=== PATIENT | female | born 1980 | race Caucasian/White ===

== ENCOUNTER → 2016-11-13 | Outpatient (CLI) | payer BC ==
[~2016-11-13] MED LIST: HYOS0.1217 PO; IBP800T; ONDAN4ODT PO; PNT40TEC PO; PROM25SU10 RC
--- OUTSIDE RECORDS SUMMARY | 2016-11-13 11:22 | XMS REPORT | Continuity of Care Document ---
Author Author [facility] Organization [facility] Address Unknown Phone Unavailable Allergies Medications Problems Procedures Results Encounters ACCT No. Visit Date/Time Discharge Status Pt. Type Provider Facility Loc./Unit Complaint [id number] 09/09/2013 21:52:00 2012 01:44:00 [facility]
--- NOTE | 2016-11-13 13:28 | Diagnostic Imaging Report ---
Pelvic ultrasound. INDICATION: Bleeding. FINDINGS: There are no previous pelvic ultrasound examinations available for comparison. The previous CT abdomen/pelvis exam of 09/10/2013 did note a 2.8 cm cyst associated with the right ovary. On this exam, the uterus is nongravid and not enlarged measuring 7.7 x 3.6 x 3.9 cm. The endometrial lining is not thickened measuring 3 mm. There is no focal mass involving the uterus to suggest a fibroid. Both ovaries are identified. The cyst associated with the right ovary seen previously has resolved. There are few subcentimeter follicles associated with each ovary. There is blood flow to each ovary and there is no sign of torsion. There is no pelvic mass or free fluid collection evident. IMPRESSION: The cyst associated with the right ovary seen on the previous exam has resolved. There is no acute pelvic abnormality identified at this time. Dictated by: Dictated on workstation # [id number]
== END ==
LOC: RAD 11:17
PROVIDERS: ATTEND Obstetrics & Gynecology
DX: N93.8 Other specified abnormal uterine and vaginal bleeding (principal)
CPT/HCPCS: 76830; 76856